=== PATIENT | male | born 1945 | race Caucasian/White ===

== ENCOUNTER 2021-08-01 05:30 | Outpatient (CLI) | payer OTHER ==
[~2021-08-01] VITALS: Ht 188 cm; Wt 95.0 kg
[2021-08-01] MEDS ORDERED: MV-M1TAB20 PO (16:52)
[2021-08-01] MEDS ORDERED: IBUP-2185 PO (16:52)
[2021-08-01] MEDS ORDERED: ASCO500T16 PO (16:52)
[2021-08-01] MEDS ORDERED: AREDS EYE (16:52)
[2021-08-01] MEDS ORDERED: OMEG-154 PO (16:52)
== END 2021-08-01 17:07 | disposition home or self-care (01) ==
LOC: PREOP 05:30
PROVIDERS: ATTEND Surgery
DX: Z01.818 Encounter for other preprocedural examination (principal)

== ENCOUNTER 2021-08-15 09:06 | Day surgery (SDC) | payer OTHER ==
[~2021-08-15] VITALS: Ht 188 cm; Wt 95.0 kg
[2021-08-15] VITALS (12 sets, daily range): BP systolic 98–132; BP diastolic 47–74
[~2021-08-15 09:06] MED LIST: AREDS EYE; ASCO500T16 PO; IBUP-2185 PO; MV-M1TAB20 PO; OMEG-154 PO
[2021-08-15] MEDS ORDERED: ceFAZolin 2 GM IV Premixed 50 ML IV ONE (09:30)
[2021-08-15] MEDS ORDERED: LACTATED RINGERS 1,000 ML IV PRN (09:30)
[2021-08-15] MEDS ORDERED: LIDOCAINE/EPI 2% 1:100,00 (XYLOCAINE) 20 ML VIAL ONE (09:48)
--- NOTE | 2021-08-15 10:21 | Progress Note-Pre Operative ---
Pre-Operative Progress Note H&P Reviewed The H&P was reviewed, patient examined and no changes noted. Time Seen by Provider: 10:20 Date H&P Reviewed: Aug 15, 2021 Time H&P Reviewed: 10:20 Pre-Operative Diagnosis: Left arm cancer, site marked DANA GARBER DO Aug 15, 2021 10:21
[2021-08-15] MEDS ORDERED: fentaNYL INJ 100 MCG/2 ML AMP ONE ×2 (10:30→11:43)
[2021-08-15] MEDS ORDERED: proPOfol 200 MG/20 ML (DIPRIVAN) VIAL IV ONE (10:36)
[2021-08-15] MEDS ORDERED: LIDOCAINE PF 2% 5 ML (XYLOCAINE) VIAL ONE (10:36)
[2021-08-15] MEDS ORDERED: ONDANSETRON 4 MG/2 ML (SDV) Z0FRAN ONE (10:38)
[2021-08-15] MEDS ORDERED: SEVOFLURANE (ULTANE) 15 ML INHAL SOLN ONE (11:11)
[2021-08-15] MEDS ORDERED: ACHD5005 PO (11:16)
--- NOTE | 2021-08-15 11:16 | Progress Note-Post Operative ---
Post-Operative Progess Note Surgeon (s)/Meter Technician (s) Surgeon DANA GARBER DO Meter Technician: Rohit Jenkins, MSIII Pre-Operative Diagnosis Left arm cancer, site marked Post-Operative Diagnosis same pending path Procedure & Operative Findings Date of Procedure 08/15/21 Procedure Performed/Findings Excision Left arm Squamous Cell CA, appx 2 x 7.1 cm Anesthesia Type LMA Estimated Blood Loss Estimated blood loss (mL): scant Specimens/Packing Specimens Removed left arm SCC DANA GARBER DO Aug 15, 2021 11:16
--- NOTE | 2021-08-15 11:18 | Discharge Inst-Surgical ---
Discharge Inst-Surgical Depart Medication/Instructions New, Converted or Re-Newed RX: Transmitted to Pharmacy Patient Instructions Follow up Appt: Make appointment for 1 week. [phone] Instructions: No lifting greater than 20 pounds. No strenuous activity. May shower in 24 hours, no tub bath or soaking. Use incentive spirometer at home as directed. No Smoking Skin/Wound Care: May remove bandages in am. You need to leave the sutures in place and come to the office to have them removed. Symptoms to Report: Appetite Changes, Extremity Discoloration, Numbness/Tingling, Swelling Increased, Bleeding Excessive, Eyesight Changes, Pain Increased, Urine Color Change, Constipation(Persistent), Fever over 101 degree F, Pain/Pressure in chest, Urinating Difficulty, Cough Up/Vomit Blood, Heart Beat Irreg/Pounding, Pain/Pressure in jaw, Cramps in feet or legs, Lightheadedness, Pain/Pressure in shoulder, Diarrhea(Persistent), Memory Changes Suddenly, Questions/Concerns, Weight gain consecutive days, Dizziness/Fainting, Nausea/Vomiting, Shortness of Breath, Weight gain over 2 pounds If questions or concerns contact your physician Or seek help at emergency department. Activity Activity as Tolerated: Yes Activity Instructions: Avoid Stress to Incision Driving Instructions: No Driving/Refer to Dr. Flores Discharge Diet: No Restrictions Diet After 24 Hours: Clear Liquid if Nauseous If Any Problems/Questions/Issu: Contact Your Physician, Go to Emergency Room Skin/Wound Care Infection Signs and Symptoms: Increased Redness, Foul Odor of Wound, Increased Drainage, Skin Itchy or Has a Rash, Increased Swelling, Temperature Above 101 F Bathing Instructions: Shower Stitches/Donato/Dermabond Dis: Care of Stitches DANA GARBER DO Aug 15, 2021 11:18
[2021-08-15] MEDS ORDERED: ONDANSETRON 4 MG/2 ML (SDV) Z0FRAN IVP PRN (11:45)
[2021-08-15] MEDS ORDERED: fentaNYL INJ 100 MCG/2 ML AMP IVP ONE (11:45)
--- NOTE | 2021-08-15 23:44 | OPERATIVE REPORT ---
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 POSTOPERATIVE DIAGNOSIS: Left forearm squamous cell cancer, pending pathology. PROCEDURE: Excision of left forearm squamous cell cancer, approximately 2 cm x 7.1 cm incision. SURGEON: Prashant Jackson DO INTELLIGENT SYSTEMS ENGINEER: KENYETTA Barber. ANESTHESIA: LMA. SPECIMEN: Left forearm mass. The mass measured just over 2 cm x just over 1.5 cm. The excision required to remove this was a little bit over 2 cm x 7.1 cm. BLOOD LOSS: Scant. FLUIDS: Per anesthesia. POSTOPERATIVE CONDITION: Stable. INDICATION FOR PROCEDURE: The patient is a 76-year-old male who has a mass on his left forearm, had biopsied at outside institution, came back as squamous cell. He wanted to get this removed. FINDINGS: The patient had a left forearm mass removed and sent to pathology. PROCEDURE NOTE: After informed consent was obtained, the patient was brought to the operating room, placed on the table in supine position. He was sterilely prepped and draped in normal fashion. Local lidocaine was used to infiltrate the skin around this mass, had drawn an elliptical incision on the skin. Mass measured about 2 cm long x about 1.5 cm wide. Made an incision measuring 2 cm wide x about 7.1 cm long with a #15 blade down through the skin into subcutaneous tissue, then deepened down to subcutaneous tissue with Bovie electrocautery, going under the skin and this mass and then removed this en bloc, suturing a short suture superiorly and a long suture laterally. This was then passed off table and sent to pathology, irrigated the incision. Hemostasis obtained using Bovie electrocautery, then elected to close the incision with 3-0 Prolene, 3 interrupted vertical mattress sutures and then 4 interrupted simple sutures. Area was cleaned and dried, dressing placed. The patient tolerated the procedure. Sponge, instrument and needle count correct at the end of the case. Job ID: [id number] DocumentID: [id number] Dictated Date: 08/15/2021 15:00:58 High Risk Ob Date: 08/15/2021 23:43:44 Dictated By: PRASHANT JACKSON DO
--- NOTE | 2021-08-16 09:08 | Anesthesia-General Post-Op ---
General Patient Condition Mental Status/LOC: Same as Preop Cardiovascular: Satisfactory Nausea/Vomiting: Absent Respiratory: Satisfactory Pain: Controlled Complications: Absent Post Op Complications Complications None Follow Up Care/Instructions Patient Instructions None needed. Anesthesia/Patient Condition Patient Condition Patient is doing well, no complaints, stable vital signs, no apparent adverse anesthesia problems. No complications reported per nursing. PHANI MACEDO CRNA Aug 16, 2021 09:08
== END 2021-08-15 13:20 ==
LOC: SDC 09:06
PROVIDERS: ATTEND Surgery
DX: C76.42 Malignant neoplasm of left upper limb (principal)
CPT/HCPCS: 87081